=== PATIENT | male | born 1980 | race Caucasian/White ===

== ENCOUNTER → 2017-10-14 | Outpatient (CLI) | payer OTHER ==
[~2017-10-14] MED LIST: ANTIBIOTIC O500 U/GM TP; ATARAX25 MG PO; AUGMENTIN 875 M1 TAB PO; CLARITIN10 MG PO; MOTRIN800 MG PO; Motrin,Rufen800 MG PO; NKHM; TOBREX OPHTH S2.5 ML OPH; ZITHROMAX Z PA250 MG PO; ZOFRAN4 MG PO
== END | disposition home or self-care (01) ==
LOC: RAD 14:09
DX: R50.9 Fever, unspecified (principal); R05 Cough; R09.89 Other specified symptoms and signs involving the circulatory and respiratory systems

== ENCOUNTER 2019-12-07 17:06 | Emergency (ER) | payer BC, OTHER ==
[~2019-12-07] VITALS: Ht 193 cm; Wt 122.5 kg
[2019-12-07 17:14] VITALS: BP 161/98
[2019-12-07] MEDS ORDERED: VISTARIL25 MG PO (17:51)
[2019-12-07] MEDS ORDERED: PREDNISONE20 M1 PO (17:51)
== END 2019-12-07 18:06 | disposition home or self-care (01) ==
LOC: ED 17:06
DX: L25.9 Unspecified contact dermatitis, unspecified cause (principal)

== ENCOUNTER → 2020-06-01 | Outpatient (CLI) | payer BC, OTHER ==
[~2020-06-01] MED LIST changes: +PREDNISONE20 M1 PO; +VISTARIL25 MG PO
[2020-06-01 09:13] LABS: MEAN CELL VOLUME 85.3 fl (80.0-94.0); MEAN CORPUSCULAR HGB 28.1 pg (27.0-31.0); MEAN PLATELET VOLUME 9.7 fl (9.6-12.3); RED BLOOD COUNT 5.16 10*6/uL (4.50-5.90); RED CELL DISTRI WIDTH 12.7 % (0-14.5); WHITE BLOOD COUNT 7.6 10*3/uL (4.8-10.8)
[2020-06-01 09:31] LABS: ALBUMIN 3.3 gm/dl (3.1-4.5); ALKALINE PHOSPHATASE 52 U/L (45-117); BUN 12 mg/dl (7-24); CHLORIDE 109 mmol/L (98-107); CHOLESTEROL 212 mg/dL (<200); CREATININE 0.97 mg/dL (0.70-1.30); HDL CHOLESTEROL 38 mg/dl (40-60); LDL CHOLESTEROL 101 mg/dL (9-159); POTASSIUM 4.1 mmol/L (3.5-5.1); SGOT/AST 22 IU/L (3-35); SGPT/ALT 43 U/L (12-78); SODIUM 141 mmol/L (136-145); TOTAL PROTEIN 7.2 gm/dL (6.4-8.2); TRIGLYCERIDES 367 mg/dl (<150); VLDL CHOLESTEROL 73 mg/dL (6-40)
== END | disposition home or self-care (01) ==
LOC: LAB 08:30
PROVIDERS: ATTEND Family Medicine
DX: Z13.220 Encounter for screening for lipoid disorders (principal); R53.83 Other fatigue

== ENCOUNTER → 2021-03-22 | Outpatient (CLI) | payer BC, OTHER | END | disposition home or self-care (01) | LOC: RAD 13:07 | PROVIDERS: ATTEND Family Medicine | DX: U07.1 COVID-19 (principal) ==

== ENCOUNTER → 2021-03-27 | Outpatient (CLI) | payer BC, OTHER | END | disposition home or self-care (01) | LOC: RAD 10:10 | PROVIDERS: ATTEND Family Medicine | DX: R91.8 Other nonspecific abnormal finding of lung field (principal); U07.1 COVID-19; J12.82 Pneumonia due to coronavirus disease 2019 ==

== ENCOUNTER → 2023-07-31 | Outpatient (CLI) | payer BC, OTHER ==
[2023-07-31 08:34] LABS: HEMATOCRIT 42.4 % (42.0-52.0); MEAN CELL VOLUME 87.1 fl (80.0-94.0); MEAN CORPUSCULAR HGB 28.5 pg (27.0-31.0); MEAN CORPUSCULAR HGB CONC 32.8 g/dl (33.0-37.0); MEAN PLATELET VOLUME 8.8 fl (9.6-12.3); RED BLOOD COUNT 4.87 10*6/uL (4.50-5.90); RED CELL DISTRI WIDTH 12.6 % (0-14.5); WHITE BLOOD COUNT 9.3 10*3/uL (4.8-10.8)
[2023-07-31 09:02] LABS: ALKALINE PHOSPHATASE 55 U/L (46-116); BUN 7 mg/dl (9-23); CHLORIDE 105 mmol/L (98-107); CHOLESTEROL 177 mg/dL (<200); LDL CHOLESTEROL 76 mg/dL (9-159); POTASSIUM 3.9 mmol/L (3.4-5.1); SGPT/ALT 25 U/L (5-49); TOTAL PROTEIN 7.3 gm/dL (6.0-8.0); TRIGLYCERIDES 343 mg/dl (<150)
== END | disposition home or self-care (01) ==
LOC: LAB 08:21
PROVIDERS: ATTEND Family Medicine
DX: Z00.00 Encounter for general adult medical examination without abnormal findings (principal); J09.X2 Influenza due to identified novel influenza A virus with other respiratory manifestations; R50.9 Fever, unspecified

== ENCOUNTER 2023-10-15 12:30 | Emergency (ER) | payer BC, OTHER ==
[2023-10-15 12:46] VITALS: BP 128/83
[2023-10-15] MEDS ORDERED: FLUORESCEIN SODIUM 1 MG STRIP OPH ONE (12:55)
[2023-10-15] MEDS ORDERED: Tetracaine Hydrochloride 0.5% 4 ML BOT OPH ONE (12:55)
[2023-10-15] MEDS ORDERED: OFLOXACIN 0.3% 5 ML BOTTLE OPH ONE (13:15)
[2023-10-15] MEDS ORDERED: ZITHROMAX250 MG PO (14:58)
== END 2023-10-15 15:05 | disposition home or self-care (01) ==
LOC: ED 12:30
DX: S05.51XA Penetrating wound with foreign body of right eyeball, initial encounter (principal); Z20.822 Contact with and (suspected) exposure to COVID-19; S05.01XA Injury of conjunctiva and corneal abrasion without foreign body, right eye, initial encounter; J06.9 Acute upper respiratory infection, unspecified; Z98.890 Other specified postprocedural states; X58.XXXA Exposure to other specified factors, initial encounter; Y93.89 Activity, other specified; Y92.89 Other specified places as the place of occurrence of the external cause; Y99.0 Civilian activity done for income or pay